=== PATIENT | female | born 1970 | race Caucasian/White ===

== ENCOUNTER → 2022-01-28 | Outpatient (CLI) | payer SELFPAY ==
--- NOTE | 2022-01-29 08:35 | MR ---
EXAMINATION TYPE: MR pelvis wo/w con DATE OF EXAM: 01/28/2022 COMPARISON: None CLINICAL INDICATION:Female, 51 years old with history of R10.2 pelvic pain; TECHNIQUE: Triplane multisequence imaging was performed of the pelvis with and without IV contrast. IV Contrast: 6.5 cc Gadavist FINDINGS: Reproductive: Vagina: Unremarkable. Uterus: The uterus is retroverted in position. Uterus measures 6.6 x 2.6 x 3.7 cm. A mass which is fe lt to be a pedunculated fibroid measuring 7.1 x 7.4 x 7.9 cm emanates off the anterior aspect uterus with pedicle felt to be on image 24 series 801. There is a posterior fundal lobe T2 signal intramural fibroid measuring 11 mm. There is a posterior right adnexal heterogenous mass measuring 4.0 x 3.7 x 3.7 cm which may represent pedunculated fibroid. This lesion enhances The endometrium and junctional zone are within normal limits. The endometrium measures 4 mm in the ju nctional zone measures 10 mm. Ovaries: Follicular changes are noted to the ovaries. The left ovary measures 2.7 x 1.0 x 1.6 cm and demonstrates a follicle/cysts changes the largest measuring up to 10 mm.. What is felt to be the righ t ovary measures 2.1 x 2.7 x 1.0 cm along the right lateral pelvic wall without follicle/cyst changes . Bladder: Unremarkable. Bowel: Unremarkable as visualized. Peritoneum: No evidence of adenopathy. Trace free fluid in the pelvis. Vasculature: Unremarkable. Abdominal wall/soft tissues: Unremarkable. Musculoskeletal: Bone marrow signal is within normal signal intensity. IMPRESSION: 1. There are 2 pelvic masses both of which are felt to be pedunculated fibroids. The largest measuri ng up to 7.9 cm which is more anterior to the right and another smaller that is more posterior to the right. These demonstrate postcontrast enhancement. Additional intramural fibroids are present. 2. Junctional zone and endometrium are within normal limits for thickness.
== END | disposition home or self-care (01) ==
LOC: RADMRIMAIN 13:42
DX: D25.1 Intramural leiomyoma of uterus (principal)
CPT/HCPCS: 72197; A9585